=== PATIENT | female | born 1930 | race Caucasian/White ===

== ENCOUNTER 2017-06-23 12:04 | Inpatient (IN) | payer MEDICARE ==
[~2017-06-23] VITALS: Ht 162.5 cm; Wt 54.7 kg
--- NOTE | ~2017-06-23 | PR ---
[place], [place] PROGRESS NOTE NAME: CHRISTO SILVA UNIT #: [id number] ROOM: 518 DOCTOR: DANIEL ALMODOVAR,SATURNINO Moise BIRTHDATE: [birth year] DOS: 06/26/2017 Addendum to progress note on the patient from 06/26/2017 from the Infectious Disease. I agree with the above plans as described. We will follow the patient up clinically and adjust accordingly. SATURNINO SANCHEZ MD CM:PNTRANS [id number] SATURNINO SANCHEZ MD 06/30/17 0549 interface
--- NOTE | ~2017-06-23 | PR ---
[place], [place] PROGRESS NOTE NAME: CHRISTO SILVA UNIT #: [id number] ROOM: 518 DOCTOR: MELANIE YOO,JANUARY BIRTHDATE: [birth year] DOS: 06/26/2017 SUBJECTIVE: The patient is being followed for UTI with sepsis. She has positive blood cultures for E. coli, which was fairly sensitive. There is also second bacteria which is Gram-positive cocci in pairs, which has not yet been identified, positive blood cultures are from June 23. Her repeat blood cultures from 06/24/2017 are negative. Her urine culture is negative. She states she had urinary symptoms for approximately a month prior to admission with pain and burning with urination. She states her symptoms have improved. She is feeling better. Her temperatures are down. Her WBCs have normalized, down to 9.8. LABORATORY DATA: Showed WBC is 9.8, platelets 182. BUN 14, creatinine 1.18. Cultures as reviewed above. CURRENT MEDICATIONS: Include Os-Derik, Zosyn, Pepcid, Ativan, vitamin D, Claritin esterase, Cardizem, Zanaflex, Ativan, Ditropan, Restoril. She had also been on vancomycin, which has been stopped. She feels well. Denies fevers, chills, nausea, vomiting or diarrhea. Does have back pain, has some chronic back pain due to arthritis. PHYSICAL EXAMINATION: VITAL SIGNS: Show temperature 98.0, pulse 63, respirations 20, BP 126/48. GENERAL: An 87-year-old female, nontoxic in appearance. HEAD, EYES, EARS, NOSE AND THROAT: Normocephalic, no thrush. LUNGS: Clear to auscultation bilaterally. Respirations even and unlabored. HEART: Regular rhythm. No murmur appreciated. ABDOMEN: Soft, nontender, nondistended. EXTREMITIES: No edema or deformity. She does have right CVA tenderness. ASSESSMENT: Urinary tract infection with septicemia with E. coli as well as a second gram-positive cocci bacteria, currently listed as being in pairs; therefore, it may well be Enterococcus. If that is the case, quinolone would not be adequate for discharge. PLAN: We need to follow up on cultures to determine adequate antibiotics for discharge. I would also recommend she had a renal ultrasound, especially given her bacteremia in the length of time that she was symptomatic. YARITZA NAVARRO CNP [place], [place] PROGRESS NOTE NAME: CHRISTO SILVA UNIT #: [id number] ROOM: 8 DOCTOR: MELANIE YOOJANUARY BIRTHDATE: [birth year] SATURNINO SANCHEZ MD CM:PNTRANS [id number] YARITZA NAVARRO CNP 06/28/17 0748 interface
[~2017-06-23 12:04] MED LIST: ASPIRIN81 MG PO; ATIVAN0.5 MG PO; ATIVAN1 MG PO; BACTRIM DS 8001 TA1 PO; BENADRYL25 MG PO; CARDIZEM CD180 MG PO; CARTIA XT180 MG PO; CIPROFLOXACIN500 MG PO; CLARITIN10 MG PO; DARVOCET N 1001 TAB PO; ESTRACE1 M1 PO; FLEXERIL5 MG PO; HYDROCODONE BIT1 T11 PO; LEVAQUIN250 MG PO; LEXAPRO10 MG PO; LISINOPRIL10 MG PO; LORAZEPAM1 MG PO; MACROBID100 M1 PO; MAXZIDE 25 MG-31 TAB PO; MYRBETRIQ50 M1 PO; NAPROXEN220 MG PO; OMNICEF300 MG PO; PREDNISONE20 M1 PO; PREDNISONE50 MG PO; PYRIDIUM200 MG PO; TRAMADOL HCL50 MG PO; ULTRAM50 MG PO; VIBRAMYCIN100 MG PO; VITAMIN B121000 MC2 SL; VITAMIN D32000 UNIT PO
[2017-06-23 12:08] VITALS: BP 149/58
[2017-06-23 12:30] LABS: BILIRUBIN NEGATIVE (NEGATIVE); BLOOD 3+ (NEGATIVE); CLARITY CLOUDY (CLEAR); COLOR YELLOW (YELLOW); GLUCOSE NEGATIVE (NEGATIVE); KETONE 1+ (NEGATIVE); LEUKO ESTERASE 3+ (NEGATIVE); NITRITE POSITIVE (NEGATIVE); SPECIFIC GRAVITY 1.015 (1.005-1.030); UROBILINOGEN 0.2 E.U./dl (0.2-1.0)
[2017-06-23 12:42] LABS: WBC TNTC wbc/hpf (0-5)
[2017-06-23 12:43] LABS: BACTERIA 2+
[2017-06-23 12:56] LABS: HEMATOCRIT 34.5 % (37.0-47.0); HEMOGLOBIN 11.4 g/dl (12.0-16.0); MEAN CELL VOLUME 92.2 fl (81.0-99.0); MEAN CORPUSCULAR HGB 30.5 pg (27.0-31.0); MEAN PLATELET VOLUME 10.8 fl (9.6-12.3); PLATELET COUNT AUTOMATED 159 10*3/uL (130-400); RED BLOOD COUNT 3.74 10*6/uL (4.10-5.10); WHITE BLOOD COUNT 21.5 10*3/uL (4.8-10.8)
[2017-06-23 13:11] LABS: ALBUMIN 2.8 gm/dl (3.1-4.5); CREATININE 1.57 mg/dL (0.55-1.02); POTASSIUM 3.6 mmol/L (3.5-5.1); TOTAL PROTEIN 6.8 gm/dL (6.4-8.2)
[2017-06-23 13:14] LABS: PLATELET SUFFICIENCY NORMAL (NORMAL); TOTAL CELLS COUNTED 100 #CELLS; TOXIC GRANULATION SLIGHT
[2017-06-23 14:57] VITALS: BP 157/63
[2017-06-23] MEDS ORDERED: RESTORIL15 MG PO (15:10)
[2017-06-23] MEDS ORDERED: HYSINGLA ER30 MG PO (15:11)
[2017-06-23] MEDS ORDERED: B121000 MCG/1 IM (15:13)
[2017-06-23] MEDS ORDERED: ZANAFLEX4 M2 PO (15:14)
[2017-06-23] MEDS ORDERED: VESICARE10 MG PO (15:15)
--- NOTE | 2017-06-23 15:15 | NUR ---
Time: 1514 A 87 year old FEMALE admitted to 5E under services of LUIGI MAYBERRY DO. Pt. arrived via stretcher from ER. Chief complaint: LOWER ABD/FLANK PAIN WHICH BEGAN 2 DAYS AGO. JEN MOONEY
--- NOTE | 2017-06-23 15:30 | NUR ---
MEDS VERIFIED WITH PHARMACY.
[2017-06-23 16:00] VITALS: BP 157/63
[2017-06-23 20:00] VITALS: BP 126/53
[2017-06-24] VITALS: BP 95/75
--- NOTE | 2017-06-24 05:00 | NUR ---
DR. JIMENEZ NOTIFIED OF BLOOD CULTURE ANAEROBIC BOTTLE [id number] WAS GRAM NEGATIVE BACILLI. OTHER ANEROBIC BOTTLE ALSO GRAM NEGATIVE BACILLI AND GRAM POSITIVE COCCI IN PRS.
[2017-06-24 06:10] LABS: BASO % 0.1 % (0.0-1.0); EOS # 0.1 10*3/uL (0.0-0.4); EOS % 0.3 % (1.0-4.0); HEMATOCRIT 36.4 % (37.0-47.0); HEMOGLOBIN 11.7 g/dl (12.0-16.0); LYMPH # 0.8 10*3/uL (1.3-4.4); LYMPH % 4.3 % (27.0-41.0); MEAN CELL VOLUME 94.3 fl (81.0-99.0); MEAN CORPUSCULAR HGB 30.3 pg (27.0-31.0); MEAN CORPUSCULAR HGB CONC 32.1 g/dl (33.0-37.0); MEAN PLATELET VOLUME 10.8 fl (9.6-12.3); MONO # 1.1 10*3/uL (0.1-1.0); MONO % 6.2 % (3.0-9.0); NEUT # 15.5 10*3/uL (2.3-7.9); NEUT % 88.4 % (47.0-73.0); PLATELET COUNT AUTOMATED 161 10*3/uL (130-400); RED BLOOD COUNT 3.86 10*6/uL (4.10-5.10); RED CELL DISTRI WIDTH 13.2 % (0-14.5); WHITE BLOOD COUNT 17.5 10*3/uL (4.8-10.8)
[2017-06-24 06:42] LABS: ACT PARTIAL THROMBO TIME 26.8 SECONDS (20.8-31.5)
[2017-06-24 06:47] LABS: ALBUMIN 2.4 gm/dl (3.1-4.5); CREATININE 1.16 mg/dL (0.55-1.02); PHOSPHOROUS 3.1 mg/dL (2.5-4.9); POTASSIUM 3.7 mmol/L (3.5-5.1); TOTAL PROTEIN 6.3 gm/dL (6.4-8.2)
[2017-06-24 06:54] LABS: THYROID STIM HORMONE (HS) 0.539 uIU/ml (0.358-4.75)
[2017-06-24 07:06] LABS: VITAMIN D, 25-HYDROXY 37.2 ng/mL (30-100)
[2017-06-24 08:00] VITALS: BP 122/52
--- NOTE | 2017-06-24 08:00 | NUR ---
PT UNSURE OF ALL MEDICATIONS AND DOSAGES AT TIME OF REVIEW, BUT MEDS WERE VERIFIED THROUGH PHARMACY AT TIME OF ADMISSION.
--- NOTE | 2017-06-24 09:00 | NUR ---
Energy Administrator in to talk to patient. Patient states lives at home with alone. There are few steps in the home. Physician: alicia palmer [facility]acy: [facility] Home health services: none Patient's level of ADLs: INDEPENDENT Patient has working utilities: all working DME: none Follow-up physician's appointment after d/c: will be made by hospitalist nurse director upon discharge Does patient want to access PORTAL?: no Discharge plan discussed with patient, patient states she lives in an apartment and her daughter lives next door, patient states for her age she gets around just fine, no cane or walker, he states she will be going back home upon discharge. discussed with her VNA and she denies need for any service at this time, case management will follow. RASHIDA BARROSO
[2017-06-24 12:00] VITALS: BP 137/69
[2017-06-24 12:54] LABS: BILIRUBIN NEGATIVE (NEGATIVE); BLOOD 3+ (NEGATIVE); CLARITY SL CLOUDY (CLEAR); COLOR YELLOW (YELLOW); GLUCOSE NEGATIVE (NEGATIVE); KETONE NEGATIVE (NEGATIVE); LEUKO ESTERASE 2+ (NEGATIVE); NITRITE NEGATIVE (NEGATIVE); UROBILINOGEN 0.2 E.U./dl (0.2-1.0)
--- NOTE | 2017-06-24 13:00 | NUR ---
PT RESTING IN BED, NO DISTRESS NOTED. UP EATING LUNCH. PT DENIES ANY DYSURIA AT THIS TIME. IVF INFUSING PER ORDER. CALL LIGHT WITHIN REACH.
[2017-06-24 13:07] LABS: WBC TNTC wbc/hpf (0-5)
[2017-06-24 16:00] VITALS: BP 135/57
--- NOTE | 2017-06-24 17:40 | NUR ---
MEDICATED WITH ZOFRAN FOR COMPLAINTS OF NAUSEA. WILL MONITOR FOR EFFECTIVENESS.
[2017-06-24 20:00] VITALS: BP 151/65
[2017-06-25] VITALS: BP 158/56
--- NOTE | 2017-06-25 03:10 | NUR ---
NORCO GIVEN FOR C/O BACK PAIN. RATED PAIN A 7-8/10 WITH 10 BEING THE WORST. SEE MAR. REINFORCED USE OF CALL LIGHT
[2017-06-25 06:45] LABS: BASO % 0.1 % (0.0-1.0); EOS # 0.1 10*3/uL (0.0-0.4); EOS % 1.6 % (1.0-4.0); HEMATOCRIT 30.5 % (37.0-47.0); HEMOGLOBIN 9.9 g/dl (12.0-16.0); LYMPH # 0.7 10*3/uL (1.3-4.4); LYMPH % 8.3 % (27.0-41.0); MEAN CELL VOLUME 93.6 fl (81.0-99.0); MEAN CORPUSCULAR HGB 30.4 pg (27.0-31.0); MEAN CORPUSCULAR HGB CONC 32.5 g/dl (33.0-37.0); MEAN PLATELET VOLUME 10.5 fl (9.6-12.3); MONO % 11.2 % (3.0-9.0); NEUT # 6.7 10*3/uL (2.3-7.9); PLATELET COUNT AUTOMATED 148 10*3/uL (130-400); RED BLOOD COUNT 3.26 10*6/uL (4.10-5.10); RED CELL DISTRI WIDTH 13.1 % (0-14.5); WHITE BLOOD COUNT 8.6 10*3/uL (4.8-10.8)
[2017-06-25 07:02] LABS: CREATININE 1.24 mg/dL (0.55-1.02); POTASSIUM 3.2 mmol/L (3.5-5.1)
[2017-06-25 08:00] VITALS: BP 124/50
--- NOTE | 2017-06-25 08:06 | NUR ---
Shift chart check completed.
--- NOTE | 2017-06-25 09:00 | NUR ---
case management visits with patient, patient denies any home needs
[2017-06-25 12:00] VITALS: BP 145/53
--- NOTE | 2017-06-25 12:22 | NUR ---
CONSULT CALLED TO DR PERSON'S OFFICE.
--- NOTE | 2017-06-25 14:31 | NUR ---
MEDICATED PATIENT WITH IVP ZOFRAN FOR NAUSEA
--- NOTE | 2017-06-25 15:31 | NUR ---
PATIENT STATES MEDICATIONS EFFECTIVE
[2017-06-25 16:00] VITALS: BP 125/52
--- NOTE | 2017-06-25 18:00 | NUR ---
IV started left forearm with #22 protective cath after 1 attempts. Site prepped with Chloroprep. Sterile dressing applied. Patient tolerated procedure well. BEATA PEACE
[2017-06-25 20:00] VITALS: BP 144/54
--- NOTE | 2017-06-25 20:55 | NUR ---
PATIENT MEDICATED WITH NORCO PER PRN ORDER FOR C/O BACK PAIN RADIATING TO LEGS. RATED PAIN A 7/10 WITH 10 BEING THE WORST. SEE EMAR. REINFORCED USE OF CALL LIGHT.
[2017-06-26] VITALS: BP 140/55
--- NOTE | 2017-06-26 07:00 | NUR ---
DR. RAMIREZ NOTIFIED OF BLOOD CULTULE RESULTS OF E .COLI
[2017-06-26 07:10] LABS: BASO % 0.3 % (0.0-1.0); EOS # 0.2 10*3/uL (0.0-0.4); EOS % 2.3 % (1.0-4.0); HEMATOCRIT 35.3 % (37.0-47.0); HEMOGLOBIN 11.2 g/dl (12.0-16.0); LYMPH # 1.4 10*3/uL (1.3-4.4); LYMPH % 13.7 % (27.0-41.0); MEAN CELL VOLUME 94.1 fl (81.0-99.0); MEAN CORPUSCULAR HGB 29.9 pg (27.0-31.0); MEAN CORPUSCULAR HGB CONC 31.7 g/dl (33.0-37.0); MEAN PLATELET VOLUME 10.9 fl (9.6-12.3); MONO # 1.1 10*3/uL (0.1-1.0); MONO % 11.1 % (3.0-9.0); NEUT # 7.1 10*3/uL (2.3-7.9); NEUT % 71.8 % (47.0-73.0); PLATELET COUNT AUTOMATED 182 10*3/uL (130-400); RED BLOOD COUNT 3.75 10*6/uL (4.10-5.10); RED CELL DISTRI WIDTH 13.3 % (0-14.5); WHITE BLOOD COUNT 9.8 10*3/uL (4.8-10.8)
[2017-06-26 07:27] LABS: CREATININE 1.18 mg/dL (0.55-1.02); POTASSIUM 3.6 mmol/L (3.5-5.1)
[2017-06-26 08:00] VITALS: BP 138/52
[2017-06-26 12:00] VITALS: BP 143/51
[2017-06-26 16:00] VITALS: BP 126/48
[2017-06-26 20:00] VITALS: BP 152/52
--- NOTE | 2017-06-26 20:00 | NUR ---
PATIENT LYING IN BED WATCHING TV. PATIENT STATES THAT SHE THINKS SHE IS GOING HOME TOMORROW. HEPLOCK INTACT TO LEFT WRIST. LUNGS ARE CLEAR BUT DIMINISHED. NORMOACTIVE BOWEL SLUNDS. PATIENT WITHOUT DISTRESS NOTED. NO EDEMA TO LOWER EXTREMITIES.
[2017-06-27] VITALS: BP 150/55
--- NOTE | 2017-06-27 03:57 | NUR ---
24 HR chart check completed.
[2017-06-27 04:00] VITALS: BP 152/58
[2017-06-27 06:41] LABS: BASO % 0.4 % (0.0-1.0); EOS # 0.2 10*3/uL (0.0-0.4); HEMATOCRIT 30.3 % (37.0-47.0); HEMOGLOBIN 9.7 g/dl (12.0-16.0); LYMPH # 1.1 10*3/uL (1.3-4.4); LYMPH % 12.3 % (27.0-41.0); MEAN CELL VOLUME 92.7 fl (81.0-99.0); MEAN CORPUSCULAR HGB 29.7 pg (27.0-31.0); MEAN PLATELET VOLUME 10.5 fl (9.6-12.3); MONO # 0.9 10*3/uL (0.1-1.0); MONO % 10.2 % (3.0-9.0); NEUT # 6.3 10*3/uL (2.3-7.9); NEUT % 73.9 % (47.0-73.0); PLATELET COUNT AUTOMATED 181 10*3/uL (130-400); RED BLOOD COUNT 3.27 10*6/uL (4.10-5.10); RED CELL DISTRI WIDTH 13.3 % (0-14.5); WHITE BLOOD COUNT 8.6 10*3/uL (4.8-10.8)
[2017-06-27 07:04] LABS: CREATININE 1.15 mg/dL (0.55-1.02); POTASSIUM 3.3 mmol/L (3.5-5.1)
[2017-06-27 08:00] VITALS: BP 149/49
--- NOTE | 2017-06-27 08:32 | NUR ---
PATIENT REQUESTED AND RECEIVED PRN NORCO ORDERED FOR C/O LEG PAIN AT A 10.
--- NOTE | 2017-06-27 09:45 | NUR ---
PATIENT STATES EARLIER NORCO WAS EFFECTIVE IN REDUCING HER PAIN FOR A SHORT TIME. SHE STATES SHE REALLY WANTS TO GO HOME TODAY. NO SXS OF DISTRESS AT THIS TIME. CALL LIGHT IS IN REACH.
[2017-06-27 12:00] VITALS: BP 143/47
[2017-06-27 16:00] VITALS: BP 150/94
--- NOTE | 2017-06-27 17:48 | NUR ---
PATIENT MEDICATED WITH PRN MORPHINE ORDERED FOR C/O LEG PAIN RATED AN 8. WILL MONITOR EFFECTIVENESS.
--- NOTE | 2017-06-27 18:45 | NUR ---
PATIENT STATES EARLIER MORPHINE WAS EFFECTIVE IN DECREASING HER PAIN. NO SXS OF DISTRESS AT THIS TIME. NO FURTHER VOICED COMPLAINTS. CALL LIGHT IS IN REACH. WILL MONITOR.
[2017-06-27 20:00] VITALS: BP 146/80
--- NOTE | 2017-06-27 22:18 | NUR ---
PATIENT LYING IN BED, COMPLAINS OF ABDOMINAL PAIN. LUNGS CLEAR, STATES HAD BM TODAY AND MORRIS NORMOACTIVE BOWEL SOUNDS. NO WOUNDS FOUND ON OBSERVATION.PATIENT PLEASANT AND TALKATIVE.
[2017-06-28] VITALS: BP 153/63
--- NOTE | 2017-06-28 00:04 | NUR ---
24 HR chart check completed.
--- NOTE | 2017-06-28 02:49 | NUR ---
PATIENT RESTING COMFORTABILY ALL NIGHT IN BED. PATIENT HAS SLEPT ALL NIGHT WITHOUT PROBLEMS.
[2017-06-28 04:00] VITALS: BP 152/60
--- NOTE | 2017-06-28 07:55 | NUR ---
Shift chart check completed.
[2017-06-28 08:00] VITALS: BP 143/57
--- NOTE | 2017-06-28 10:36 | NUR ---
PHYSICAL THERAPY Progress note: Pt seen for PT evaluation while on 5. Discussion with pt regarding home going plans with pt becoming tearful and stating she wants to be discharged from hospital, waiting for doctor to release. Discussed benefit of home health PT with pt with recommendation for home health if daughters are able to provide 24 hour supervision at initial return home, otherwise SNF advised for further rehab. Thank you for this referral, refer to PT evaluation for details. MATT FLANNERY
[2017-06-28 12:00] VITALS: BP 175/64
--- NOTE | 2017-06-28 13:13 | NUR ---
PATIENT MEDICATED WITH IVP ZOFRAN FOR NAUSEA
--- NOTE | 2017-06-28 14:14 | NUR ---
PATIENT STATES MEDICATION EFFECTIVE
[2017-06-28 16:00] VITALS: BP 155/60
[2017-06-28 20:00] VITALS: BP 156/62
[2017-06-29] VITALS: BP 118/45
--- NOTE | 2017-06-29 00:59 | NUR ---
24 HR chart check completed.
--- NOTE | 2017-06-29 03:41 | NUR ---
PATIENT LYING IN BED ON HER LEFT SIDE, SLEEPING. NO S/S OF DISTRESS NOTED. IV INTACT IN LEFT ARM. RESPIRATIONS ARE EASILY.
[2017-06-29 04:00] VITALS: BP 120/60
[2017-06-29 06:52] LABS: BASO % 0.3 % (0.0-1.0); EOS # 0.2 10*3/uL (0.0-0.4); EOS % 3.3 % (1.0-4.0); HEMATOCRIT 32.2 % (37.0-47.0); HEMOGLOBIN 10.2 g/dl (12.0-16.0); LYMPH # 1.1 10*3/uL (1.3-4.4); LYMPH % 15.2 % (27.0-41.0); MEAN CELL VOLUME 93.6 fl (81.0-99.0); MEAN CORPUSCULAR HGB 29.7 pg (27.0-31.0); MEAN CORPUSCULAR HGB CONC 31.7 g/dl (33.0-37.0); MEAN PLATELET VOLUME 9.7 fl (9.6-12.3); MONO # 0.7 10*3/uL (0.1-1.0); MONO % 9.9 % (3.0-9.0); NEUT # 5.1 10*3/uL (2.3-7.9); NEUT % 70.2 % (47.0-73.0); PLATELET COUNT AUTOMATED 247 10*3/uL (130-400); RED BLOOD COUNT 3.44 10*6/uL (4.10-5.10); RED CELL DISTRI WIDTH 13.2 % (0-14.5); WHITE BLOOD COUNT 7.2 10*3/uL (4.8-10.8)
[2017-06-29 07:13] LABS: CREATININE 1.31 mg/dL (0.55-1.02); POTASSIUM 3.6 mmol/L (3.5-5.1)
--- NOTE | 2017-06-29 07:38 | NUR ---
Shift chart check completed.
[2017-06-29 08:00] VITALS: BP 142/44
--- NOTE | 2017-06-29 09:00 | NUR ---
case management visits with patient, again discussed with her a short term senior living for rehab prior to going back home, patient refused, stated that she talked with her family and they stated they will care for her at home, also discussed VNA and she was receptive to this, but stated she and her family had not made a decision on what VNA company they wanted, meeting/event planner will see patient later today and make referral to VNA company of patient's choice
--- NOTE | 2017-06-29 11:47 | NUR ---
discussed discharge plan of care with patient's daughter Zenaida, who stated she lives in the apartment next door to her mother. She would like to have a referral to [facility] for nurse and PT. Will contact [facility] for referral.
[2017-06-29 12:00] VITALS: BP 130/40
[2017-06-29 16:00] VITALS: BP 135/53
[2017-06-29 20:00] VITALS: BP 137/77
--- NOTE | 2017-06-29 21:39 | NUR ---
Medicated with Restoril po prn for help with sleep. Will monitor effectiveness. Call light within reach.
--- NOTE | 2017-06-29 22:40 | NUR ---
Patient resting quietly in bed with eyes closed. Restoril effective. Will continue to monitor. Call light within reach.
[2017-06-30] VITALS: BP 131/54
--- NOTE | 2017-06-30 00:17 | NUR ---
24 HR chart check completed.
[2017-06-30 08:00] VITALS: BP 138/44
--- NOTE | 2017-06-30 09:00 | NUR ---
case management visits with patient, patient will be going home and [facility] will see her, no other needs at this time
--- NOTE | 2017-06-30 10:00 | NUR ---
AM MEDS TAKEN.
[2017-06-30] MEDS ORDERED: CIPRO500 MG PO (10:11)
--- NOTE | 2017-06-30 10:45 | NUR ---
HEP LOCK REMOVED FOR DISCHARGE. Discharge instructions reviewed with patient/family. Patient receptive and verbalizes understanding. Follow-up care arranged. Written instructions given to patient/family. JEN MOONEY
== END 2017-06-30 10:45 | disposition home health service (06) | DRG 871 ==
LOC: ED 12:04 → 5E 14:25 → EDHOLD 14:25 → 5E 14:31
PROVIDERS: Family Medicine; Physician Assistant; Student in an Organized Health Care Education/Training Program; ADMIT Internal Medicine
DX: A41.51 Sepsis due to Escherichia coli [E. coli] (principal); N17.0 Acute kidney failure with tubular necrosis; E43 Unspecified severe protein-calorie malnutrition; E83.51 Hypocalcemia; N30.01 Acute cystitis with hematuria; D64.9 Anemia, unspecified; S39.012S Strain of muscle, fascia and tendon of lower back, sequela; R73.9 Hyperglycemia, unspecified; M35.3 Polymyalgia rheumatica; M19.90 Unspecified osteoarthritis, unspecified site; E87.6 Hypokalemia; Z88.1 Allergy status to other antibiotic agents; Z79.899 Other long term (current) drug therapy; Z90.710 Acquired absence of both cervix and uterus; Z83.3 Family history of diabetes mellitus; Z90.49 Acquired absence of other specified parts of digestive tract; Z87.891 Personal history of nicotine dependence; Z68.20 Body mass index [BMI] 20.0-20.9, adult